=== PATIENT | male | born 1985 | race Caucasian/White ===

== ENCOUNTER 2024-01-27 06:20 | Day surgery (SDC) | payer OTHER, SELFPAY ==
[2024-01-27] VITALS (10 sets, daily range): BP systolic 124–158; BP diastolic 52–84; BMI 33.6
== END 2024-01-27 18:55 | disposition home or self-care (01) ==
LOC: SDS 06:20
PROVIDERS: ATTENDING PHYSICIAN Otolaryngology
DX: J34.2 Deviated nasal septum (principal); J34.3 Hypertrophy of nasal turbinates; J34.89 Other specified disorders of nose and nasal sinuses
CPT/HCPCS: 30520; 30140; 88300